=== PATIENT | male | born 1980 | race African-American/Black ===

== ENCOUNTER 2017-06-25 11:17 | Emergency (ER) | payer MEDICAID ==
[~2017-06-25] VITALS: Ht 175.3 cm; Wt 129.7 kg
[~2017-06-25 11:17] MED LIST: HYDR25TA4; METF-370
[2017-06-25] MEDS ORDERED: SODIUM CHLORIDE 0.9% 500 ML IV ONE (11:25)
[2017-06-25] MEDS ORDERED: methylPREDNISolone SOD SUCC 125 MG/2 ML VL IV ONE (11:30)
[2017-06-25] MEDS ORDERED: diphenhdrAMINE HCL 50 MG/1 ML VL IV ONE (11:30)
[2017-06-25 12:31] LABS: Basophils # (auto) 0 uL; Basophils % (auto) 0.2 % (0.0-2.0); Eosinophils # (auto) 0 uL; Eosinophils % (auto) 0.1 % (0.0-7.0); Hematocrit 37.6 % (41.0-53.0); Hemoglobin 12.9 g/dL (13.5-17.5); Lymphocytes # (auto) 1.3 uL; Mean Corpuscular Hemoglobin 29.7 pg (28.0-32.0); Mean Corpuscular Hgb Conc. 34.2 g/dL (32.0-36.0); Mean Corpuscular Volume 86.6 fL (80.0-100.0); Monocytes # (auto) 1.1 uL; Monocytes % (auto) 17.8 % (0.0-12.0); Neutrophils # (auto) 3.9 uL; Neutrophils % (auto) 61.9 % (37.0-80.0); Nucleated Red Blood Cells % 0.1 %; Platelet Count (auto) 286 10^3/uL (140-450); Red Blood Cells 4.34 10^6/uL (4.5-5.90); Red Cell Distribution Width 12.7 % (11.8-14.3); White Blood Cell 6.3 10^3/uL (4.4-10.8)
[2017-06-25 13:05] LABS: Albumin 3.2 g/dL (3.4-5.0); Bilirubin, Total 0.4 mg/dL (0.2-1.0); Calcium 8.1 mg/dL (8.5-10.1); Potassium 3.6 mmol/L (3.5-5.1); Total Protein 6.8 g/dL (6.4-8.2)
[2017-06-25] MEDS ORDERED: IOHEXOL 300 MG/ML 100ML BOTTLE IJ ONE (14:22)
[2017-06-25 15:41] VITALS: BP 156/99
== END 2017-06-25 15:13 | disposition home or self-care (01) ==
LOC: ER 11:17
DX: T78.40XA Allergy, unspecified, initial encounter (principal); K02.9 Dental caries, unspecified; I11.0 Hypertensive heart disease with heart failure; I50.9 Heart failure, unspecified; E11.9 Type 2 diabetes mellitus without complications; E78.5 Hyperlipidemia, unspecified; I25.2 Old myocardial infarction; Z95.1 Presence of aortocoronary bypass graft
CPT/HCPCS: 36415; 70450; 70491; 80053; 83735; 85025; 94761; 96361; 96374; 96375; 99285; J1200; J2930; Q9967

== ENCOUNTER 2020-07-13 18:53 | Emergency (ER) | payer MEDICAID ==
[~2020-07-13] VITALS: Ht 175.3 cm; Wt 113.4 kg
[2020-07-13 20:19] LABS: Basophils # (auto) 0.1 10 ^3/uL (0-0.2); Eosinophils # (auto) 0.1 10 ^3/uL (0-0.8); Monocytes # (auto) 0.8 10 ^3/uL (0-1.3); Monocytes % (auto) 12.1 % (0.0-12.0)
[2020-07-13 20:21] LABS: Albumin 3.1 g/dL (3.4-5.0); Anion Gap 9 (5-15); Basophils % (auto) 1.2 % (0.0-2.0); Blood Urea Nitrogen 64 mg/dL (7-18); Calcium 7.9 mg/dL (8.5-10.1); Carbon Dioxide 19 mmol/L (21-32); Chloride 109 mmol/L (98-107); Eosinophils % (auto) 1.2 % (0.0-7.0); Glucose 78 mg/dL (74-106); Hematocrit 21.2 % (41.0-53.0); Hemoglobin 7.5 g/dL (13.5-17.5); Magnesium 1.8 mg/dL (1.6-2.6); Mean Corpuscular Hemoglobin 30.4 pg (28.0-32.0); Mean Corpuscular Hgb Conc. 35.3 g/dL (32.0-36.0); Mean Corpuscular Volume 86.2 fL (80.0-100.0); Neutrophils # (auto) 4.5 10 ^3/uL (1.6-8.6); Neutrophils % (auto) 70.5 % (37.0-80.0); Platelet Count (auto) 392 10^3/uL (140-450); Red Blood Cells 2.46 10^6/uL (4.5-5.90); Red Cell Distribution Width 13.4 % (11.8-14.3); Sodium 137 mmol/L (136-145); White Blood Cell 6.4 10^3/uL (4.4-10.8)
[2020-07-13 20:24] LABS: Alanine Aminotransferase 20 U/L (16-61); Aspartate Aminotransferase 16 U/L (15-37); BUN/Creatinine Ratio 8.6; GFR African American 10 mL/min; GFR Non-African American 9 mL/min
[2020-07-13 20:29] LABS: Alkaline Phosphatase 62 U/L (45-117); Bilirubin, Total 0.3 mg/dL (0.2-1.0); Total Protein 6.9 g/dL (6.4-8.2)
[2020-07-13 20:33] LABS: Potassium 5.6 mmol/L (3.5-5.1)
[2020-07-13 20:46] LABS: INR 1.03 (0.9-1.15)
[2020-07-13] MEDS ORDERED: SODIUM BICARBONATE 8.4% INJ 50ML SYRINGE IV ONE (21:00)
[2020-07-13] MEDS ORDERED: FUROSEMIDE 40 MG/4 ML VIAL IV ONE (21:00)
[2020-07-13] MEDS ORDERED: CALCIUM GLUC 4.65meq/50ml D5AE 50 ML IV ONE (21:00)
[2020-07-13] MEDS ORDERED: ACETAMINOPHEN 500 MG TAB PO ONE (22:00)
[2020-07-13] MEDS ORDERED: hydrALAZINE HCL 20 MG/ML VL IV ONE (23:15)
[2020-07-14 01:46] LABS: BUN/Creatinine Ratio 8.4; Calcium 8.1 mg/dL (8.5-10.1); Potassium 4.9 mmol/L (3.5-5.1)
[2020-07-14 01:54] VITALS: BP 164/74
== END 2020-07-14 02:23 | disposition home or self-care (01) ==
LOC: EDBD 18:53 → ER 18:53
DX: R07.81 Pleurodynia (principal); E87.5 Hyperkalemia; I13.2 Hypertensive heart and chronic kidney disease with heart failure and with stage 5 chronic kidney disease, or end stage renal disease; E11.22 Type 2 diabetes mellitus with diabetic chronic kidney disease; N18.6 End stage renal disease; I50.9 Heart failure, unspecified; E78.5 Hyperlipidemia, unspecified; I25.2 Old myocardial infarction; Z79.899 Other long term (current) drug therapy
CPT/HCPCS: 36415; 71045; 80048; 80053; 83735; 83880; 84484; 85025; 85610; 93005; 96365; 96375; 99285; J0360; J0610; J1940